=== PATIENT | female | born 1950 | race Two or more races ===

== ENCOUNTER → 2018-07-25 | Outpatient (CLI) | payer OTHER | END | disposition home or self-care (01) | LOC: RAD 11:07 | DX: Z12.31 Encounter for screening mammogram for malignant neoplasm of breast (principal); M12.562 Traumatic arthropathy, left knee; Z87.898 Personal history of other specified conditions ==

== ENCOUNTER 2018-08-30 11:15 | Outpatient (CLI) | payer OTHER | END 2018-08-30 11:16 | disposition home or self-care (01) | LOC: NUCLEAR 11:15 | DX: M81.0 Age-related osteoporosis without current pathological fracture (principal) ==

== ENCOUNTER 2019-12-05 13:32 | Outpatient (CLI) | payer OTHER | END 2019-12-05 13:45 | disposition home or self-care (01) | LOC: MAMO-SONO 13:32 | PROVIDERS: ATTEND Family Medicine Adult Medicine | DX: Z12.31 Encounter for screening mammogram for malignant neoplasm of breast (principal); N64.59 Other signs and symptoms in breast ==

== ENCOUNTER 2021-03-16 11:36 | Outpatient (CLI) | payer OTHER | END 2021-03-16 11:41 | disposition home or self-care (01) | LOC: MAMO-SONO 11:36 | PROVIDERS: ATTEND Family Medicine Adult Medicine | DX: N64.59 Other signs and symptoms in breast (principal); Z12.31 Encounter for screening mammogram for malignant neoplasm of breast ==

== ENCOUNTER 2021-07-20 13:01 | Outpatient (CLI) | payer OTHER | END 2021-07-20 13:03 | disposition home or self-care (01) | LOC: NUCLEAR 13:01 | PROVIDERS: ATTEND Family Medicine Adult Medicine | DX: M81.0 Age-related osteoporosis without current pathological fracture (principal) ==

== ENCOUNTER 2022-06-13 07:55 | Outpatient (CLI) | payer OTHER | END 2022-06-13 08:09 | disposition home or self-care (01) | LOC: TOM 07:55 | PROVIDERS: ATTEND Family Medicine Adult Medicine | DX: Z12.11 Encounter for screening for malignant neoplasm of colon (principal); R19.5 Other fecal abnormalities ==

== ENCOUNTER → 2024-09-06 10:58 | Outpatient (CLI) | payer OTHER | END | disposition home or self-care (01) | LOC: NUCLEAR 10:58 | PROVIDERS: ATTEND Family Medicine Adult Medicine | DX: M81.0 Age-related osteoporosis without current pathological fracture (principal) ==

== ENCOUNTER 2024-11-04 10:44 | Outpatient (CLI) | payer OTHER | END 2024-11-04 10:47 | disposition home or self-care (01) | LOC: RAD 10:44 | DX: M21.061 Valgus deformity, not elsewhere classified, right knee (principal) ==